=== PATIENT | female | born 1970 | race Caucasian/White ===

== ENCOUNTER 2020-11-16 14:58 | Outpatient (CLI) | payer OTHER | END 2020-11-16 14:59 | disposition home or self-care (01) | LOC: CSHMAMMO 14:58 | PROVIDERS: ATTEND Family Medicine | DX: Z12.31 Encounter for screening mammogram for malignant neoplasm of breast (principal) | CPT/HCPCS: 77063; 77067 ==

== ENCOUNTER 2021-12-20 15:47 | Outpatient (CLI) | payer BC | END 2021-12-20 15:48 | disposition home or self-care (01) | LOC: CSHMAMMO 15:47 | PROVIDERS: ATTEND Family Medicine | DX: Z12.31 Encounter for screening mammogram for malignant neoplasm of breast (principal); Z98.890 Other specified postprocedural states | CPT/HCPCS: 77063; 77067 ==

== ENCOUNTER 2024-06-05 12:29 | Outpatient (CLI) | payer BC | END 2024-06-05 12:30 | disposition home or self-care (01) | LOC: CSHCT 12:29 | PROVIDERS: ATTEND Family Medicine | DX: R91.1 Solitary pulmonary nodule (principal); J98.4 Other disorders of lung | CPT/HCPCS: 71250 ==